=== PATIENT | male | born 2000 | race Caucasian/White ===

== ENCOUNTER 2020-11-08 02:34 | Emergency (ER) | payer BC | END 2020-11-08 07:55 | disposition home or self-care (01) | LOC: ERS 02:34 | DX: S00.81XA Abrasion of other part of head, initial encounter (principal); S40.212A Abrasion of left shoulder, initial encounter; F10.129 Alcohol abuse with intoxication, unspecified; R47.81 Slurred speech; Y90.8 Blood alcohol level of 240 mg/100 ml or more | CPT/HCPCS: 36415; 70450; 72125; 80307 ==